=== PATIENT | male | born 1955 | race Caucasian/White ===

== ENCOUNTER 2020-01-12 21:23 | Emergency (ER) | payer OTHER ==
--- NOTE | 2020-01-12 22:40 | ED Physician Documentation ---
History of Present Illness - Stated complaint Stated Complaint: HARD TO SWALLOW - Chief complaint Chief Complaint: General - Additonal information Additional information: The patient presents with complaints of difficulty swallowing. He has had intermittent bouts of this over the past couple of years. This evening, he ate a piece of chicken breast. He feels as though it got stuck in his lower esophagus. Since that time, he has had trouble drinking fluids and handling his secretions. Enroute here, he pulled over and made himself vomit. However, he still feels as though something is stuck. He says that his emesis was fluids and some chicken. He has never had an endoscopy. Review of Systems Constitutional: reports: Reviewed and negative Eyes: reports: Reviewed and negative Ears: reports: Reviewed and negative Nose: reports: Reviewed and negative Throat: reports: Reviewed and negative Cardiac: reports: Reviewed and negative Respiratory: reports: Reviewed and negative GI: reports: Other (Difficulty swallowing.). denies: Abdominal Pain, Abdominal Swelling, Nausea, Vomiting, Constipation, Diarrhea, Hematemesis : denies: Dysuria Skin: reports: Reviewed and negative PD PAST MEDICAL HISTORY - Past Medical History Past Medical History: Yes Cardiovascular: Hypertension, High cholesterol : Benign prostate hypertrophy - Past Surgical History Past Surgical History: No - Present Medications Home Medications: Ambulatory Orders Medication Instructions Recorded Confirmed Amlodipine Besylate 10 mg PO BID 01/12/20 01/12/20 Atenolol [Tenormin] 100 DAILY 01/12/20 Atorvastatin [Lipitor] 40 mg DAILY 01/12/20 01/12/20 Lisinopril [Zestril] 40 PO BID 01/12/20 Tamsulosin [Flomax] 0.4 DAILY 01/12/20 Triamterene/Hydrochlorothiazid 1 each PO DAILY 01/12/20 01/12/20 [Triamterene-Hctz 37.5-25 mg Tb] traZODone [Desyrel] 100 HS 01/12/20 - Allergies Allergies/Adverse Reactions: Allergies Allergy/AdvReac Type Severity Reaction Status Date / Time Penicillins Allergy Hives Verified 01/12/20 21:29 - Social History Does the pt smoke?: No Smoking Status: Never smoker ETOH Use: Wine Does the pt have substance abuse?: No - POLST Patient has POLST: No PD ED PE NORMAL - Vitals Vital signs reviewed: Yes - General General: No acute distress - HEENT HEENT: PERRL - Neck Neck: Supple, no meningeal sign - Cardiac Cardiac: RRR, No murmur - Respiratory Respiratory: Clear bilaterally - Abdomen Abdomen: Normal bowel sounds, Soft, Non tender, Non distended, No organomegaly - Derm Derm: Warm and dry - Extremities Extremities: No deformity - Psych Psych: Normal mood, Normal affect Results - Vitals Vitals: Vital Signs - 24 hr 01/12/20 01/12/20 01/13/20 21:29 23:19 00:45 Temperature 36.5 C 36.6 C 36.2 C L Heart Rate 72 74 81 Respiratory 16 16 16 Rate Blood Pressure 160/96 H 137/98 H 131/82 H O2 Saturation 97 99 97 Oxygen O2 Source Room air - Rads (name of study) 1 view chest x-ray Radiology: Prelim report reviewed, EMP read contemporaneously 2 view soft tissue neck. Radiology: Prelim report reviewed, EMP read contemporaneously PD MEDICAL DECISION MAKING - ED course Complexity details: re-evaluated patient, considered differential, d/w patient ED course: Initially after presentation, the patient was given a fluid challenge. He was not able to tolerate this. He immediately brought the fluids back up. Therefore, I requested that nursing staff place an IV which they did. The patient was treated with 1 mg of glucagon IV. He was subsequently observed. Then, he was given another fluid challenge which he tolerated well. I discussed the pathophysiology of food impaction with the patient. I instructed him to only have a clear liquid/soft diet until this is evaluated further. He and his are visiting in the area and reside in [place]. I encouraged him to contact his PCP in the morning to schedule a follow-up for when he returns home. At that time he should request referral for endoscopy.Only, I instructed him to again seek emergent medical attention's if his symptoms were to recur. Departure - Departure Disposition: 01 Home, Self Care Clinical Impression: Food impaction of esophagus Qualifiers: Encounter type: initial encounter Qualified Code(s): T18.128A - Food in esophagus causing other injury, initial encounter Condition: Stable Instructions: Dysphagia, ED Diet Soft Comments: Contact your primary care provider in [place] and schedule a follow-up appointment for when you return. Talk with them about your symptoms and request a referral to a field reporter or surgeon for likely endoscopy. Discharge Date/Time: 01/13/20 00:51
[2020-01-12] MEDS ORDERED: GLUCAGON 1 MG in DEXTROSE 5% 45 ML IV STA (22:54)
[2020-01-12] MEDS ORDERED: GLUCAGON 1 MG/ML VIAL ONE (23:09)
[2020-01-12] MEDS ORDERED: GLUCAGON 1 MG/ML VIAL IVP STA (23:13)
[2020-01-13 00:48] VITALS: BP 131/82
--- NOTE | 2020-01-13 08:00 | XRAY Report ---
PROCEDURE: Neck Soft Tissue INDICATIONS: difficulty swallowing TECHNIQUE: 2 views of the neck were acquired. COMPARISON: None FINDINGS: Airway: The airway appears patent. Soft tissues: Prevertebral soft tissues are normal in thickness. The epiglottis and aryepiglottic f olds appear normal. No soft tissue gas. No radiodense foreign bodies identified. Bones: No suspicious bony lesions. Visualized cervical spine is normally aligned. 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 IMPRESSION: No acute disease process. If there is continued clinical concern for neck pathology, then CT scan of soft tissues of the neck with contrast should be considered for further evaluation. Reviewed by: Roxi Lantigua MD, PhD on 01/13/2020 7:58 AM PDT Approved by: Roxi Lantigua MD, PhD on 01/13/2020 7:58 AM PDT Station ID: [id number]
--- NOTE | 2020-01-13 08:00 | XRAY Report ---
PROCEDURE: Chest 1 View X-Ray INDICATIONS: difficulty swallowing TECHNIQUE: One view of the chest was acquired. COMPARISON: None FINDINGS: Surgical changes and devices: None. Lungs and pleura: No pleural effusions or pneumothorax. Lungs are clear. Mediastinum: Mediastinal contours appear normal. Heart size is normal. Bones and chest wall: No suspicious bony lesions. Overlying soft tissues appear unremarkable. IMPRESSION: No acute cardiopulmonary disease process. Reviewed by: Roxi Lantigua MD, PhD on 01/13/2020 7:58 AM PDT Approved by: Roxi Lantigua MD, PhD on 01/13/2020 7:58 AM PDT Station ID: [id number]
== END 2020-01-13 00:51 | disposition home or self-care (01) ==
LOC: ED 21:23
DX: T18.128A Food in esophagus causing other injury, initial encounter (principal); R13.10 Dysphagia, unspecified; I10 Essential (primary) hypertension
CPT/HCPCS: 70360; 71045; 96374; 99282